=== PATIENT | female | born 1955 | race Caucasian/White ===

== ENCOUNTER 2018-12-13 01:33 | Emergency (ER) | payer MEDICAID ==
[~2018-12-13] VITALS: Ht 149.9 cm; Wt 103.2 kg
--- NOTE | 2018-12-13 02:44 | NUR ---
WHEN ASSESSING PT AND ASKING HER QUESTIONS, IF SHE DOESNT WANT TO ANSWER QUESTIONS SHE WILL TURN HER HEAD THE OTHER WAY AND IGNORE YOU. PT IS C/O THROAT PAIN BUT WILL NOT GIVE ME A NUMBER ON PAINSCALE TO RATE PAIN. FACE SCALE USED. STONE DRAINING TO GRAVITY, CLEAR YELLOW URINE. PT ONLY HAS ONE KIDNEY. NO SZ WITNESSED SINCE SHE ARRIVED
--- NOTE | 2018-12-13 03:10 | NUR ---
CALLED NEURO TELE FOR CONSULT
--- NOTE | 2018-12-13 03:52 | NUR ---
TELE NEURO COMPLETED, NEUROLOGIST WILL TALK WITH ER DOC
--- NOTE | 2018-12-13 03:52 | NUR ---
DURING CONSULT PT REFUSED TO SPEAK WITH NEUROLOGIST. SHE WOULD WHISPER AND STATE "I CANT TALK" BUT WAS ABLE TO HOLD ARMS STRAIGHT OUT AND IDENTIFIES OBJECTS WELL.
--- NOTE | 2018-12-13 03:59 | NUR ---
TOLERATING SIPS OF WATER
--- NOTE | 2018-12-13 04:19 | NUR ---
pt screaming in her room. She wanted water, water sitting right beside her. Then she said "I need something else" when asked what she said "I need my heart pumped, I need CPR." Informed the patient that no she didn't, her heart is fine.
[2018-12-13 04:24] LABS: CARBAMAZEPINE (TEGRETOL) 4.8 UG/ML (4.0-12.0)
[2018-12-13 04:35] LABS: C-REACTIVE PROTEIN 0.46 MG/DL (0.0-0.5)
--- NOTE | 2018-12-13 06:07 | NUR ---
Pt called me in and said "oh, Jacqui been having seizures all night long." Pt has not been having seizures. She has been sleeping and just awoke. I gave her more ice water.
--- NOTE | 2018-12-13 07:20 | NUR ---
[facility] AND [facility] ARE BOTH CLOSED TO ANYTHING BESIDES STEMI/ STROKES/ TRAUMAS.
[2018-12-13 09:35] LABS: BASOPHILS # (AUTO) 0.1 X10'3 (0-0.2); EOSINOPHILS # (AUTO) 0.1 X10'3 (0-0.9); EOSINOPHILS % (AUTO) 1.8 % (0-6); HEMATOCRIT 40.4 % (35.0-45.0); LYMPHOCYTES # (AUTO) 1.9 X10'3 (1.1-4.8); LYMPHOCYTES % (AUTO) 23.2 % (21-51); MEAN CORPUSCULAR HEMOGLOBIN 31.4 PG (27.0-31.0); MEAN CORPUSCULAR HGB CONC 34.5 g/dL (33.0-36.5); MEAN CORPUSCULAR VOLUME 90.9 FL (78-98); MONOCYTES # (AUTO) 0.7 X10'3 (0-0.9); MONOCYTES % (AUTO) 8.4 % (2-12); NEUTROPHILS # (AUTO) 5.5 X10'3 (1.8-7.7); NEUTROPHILS % (AUTO) 65.6 % (42-75); PLATELET COUNT 353 X10'3 (140-440); RED BLOOD COUNT 4.45 X10'6 (4.20-5.60); RED CELL DISTRIBUTION WIDTH 13.3 % (11.5-14.5); WHITE BLOOD COUNT 8.4 X10'3 (4.5-11.0)
[2018-12-13 09:47] LABS: ALANINE AMINOTRANSFERASE 40 U/L (12-78); ALBUMIN/GLOBULIN RATIO 1.3 (1.1-1.5); ALKALINE PHOSPHATASE 72 IU/L (46-116); ANION GAP 9 (8-16); ASPARTATE AMINO TRANSFERASE 25 U/L (10-37); BILIRUBIN,TOTAL 0.8 MG/DL (0.1-1.0); BLOOD UREA NITROGEN 12 MG/DL (7-18); BUN/CREATININE RATIO 12.6 (6.6-38.0); CALCIUM 9.5 MG/DL (8.5-10.1); CHLORIDE 97 MMOL/L (99-107); CREATININE 0.95 MG/DL (0.40-0.90); GLUCOSE 150 MG/DL (70-104); SODIUM 132 MMOL/L (135-145); TOTAL CARBON DIOXIDE 25.6 MMOL/L (24-32); TOTAL PROTEIN 7.1 G/DL (6.4-8.2); eGFR 59 ML/MIN
--- NOTE | 2018-12-13 11:41 | NUR ---
PER [facility] DISPATCH THERE IS STILL NO UNIT TO TRANSPORT PT. THEY ARE AWAITING APPROVAL FROM THEIR [employer]. I WILL CONTIUNE TO CALL TO CHECK STATUS.
[2018-12-13 12:20] VITALS: BP_DIAS 106
[2018-12-13] MEDS ORDERED: lisinopril 10 MG tablet PO ONE (12:20)
[2018-12-13] MEDS ORDERED: labetalol 20mg/4ml (5mg/ml) syringe IV ONE (12:20)
--- NOTE | 2018-12-13 12:24 | NUR ---
went into patient room and pt. was clicking call light repeatedly and stated she is having a seizure. No seizure was witnessed by self.
[2018-12-13 12:30] VITALS: BP_SYST 220
--- NOTE | 2018-12-13 12:54 | NUR ---
Attempted to call report to [facility], was told RN would call me back.
--- NOTE | 2018-12-13 13:26 | NUR ---
report called again to [facility]. i was placed on hold and had to hang up due to wait time.
--- NOTE | 2018-12-13 13:28 | NUR ---
Attempted to call report to [facility] for 3rd time. Lisa answered phone and states there is no one to take report and charge nurse is off the floor. States she will have someone call back. I informed Lisa that pt is in route.
--- NOTE | 2018-12-13 15:34 | NUR ---
Gave report to MAX Myles at [facility] after 4th attempt to give report.
== END 2018-12-13 12:50 | disposition short-term general hospital (02) ==
LOC: ER 01:33
DX: G40.909 Epilepsy, unspecified, not intractable, without status epilepticus (principal); I10 Essential (primary) hypertension; E66.01 Morbid (severe) obesity due to excess calories; Z86.73 Personal history of transient ischemic attack (TIA), and cerebral infarction without residual deficits; Z68.42 Body mass index [BMI] 45.0-49.9, adult; Z88.1 Allergy status to other antibiotic agents; Z88.8 Allergy status to other drugs, medicaments and biological substances
CPT/HCPCS: 36415; 71045; 80053; 80156; 83605; 84146; 85025; 85651; 86140; 93005; 96374; 99285; J3490